=== PATIENT | male | born 1935 | race Asian ===

== ENCOUNTER 2018-12-24 20:51 | Emergency (ER) | payer OTHER ==
[~2018-12-24] VITALS: Ht 165.1 cm; Wt 71.7 kg
[2018-12-24 20:54] VITALS: Ht 165.1 cm; Wt 71.7 kg
[2018-12-24 22:28] LABS: BASOPHIL % 0.8 % (0-2); PLATELET COUNT 131 x10^3mcL (130-400); RED CELL DISTRIBUTION WIDTH 13.9 % (11.5-14.5)
[2018-12-24 22:36] LABS: CALCIUM 8.3 mg/dL (8.5-10.1); CARBON DIOXIDE 22.6 mmol/L (21-32); CHLORIDE SERUM 103 mmol/L (98-107); CREATININE SERUM 1.3 mg/dL (0.7-1.3); GLUCOSE SERUM 132 mg/dL (74-106); POTASSIUM SERUM 3.7 mmol/L (3.5-5.1); SODIUM SERUM 135 mmol/L (136-145)
[2018-12-24 22:40] LABS: ALBUMIN 3.8 g/dL (3.4-5.0); ALKALINE PHOSPHATASE 67 U/L (46-116); ALT/SGPT 33 U/L (16-63); AST/SGOT 20 U/L (15-37); BILIRUBIN TOTAL 0.5 mg/dL (0.20-1.00); TOTAL PROTEIN, SERUM 7.6 g/dL (6.4-8.2)
[2018-12-25 00:19] VITALS: BP 140/81
== END 2018-12-25 00:19 | disposition home or self-care (01) ==
LOC: ED 20:51
PROVIDERS: Emergency Medicine
DX: J44.9 Chronic obstructive pulmonary disease, unspecified (principal); I10 Essential (primary) hypertension; Z98.890 Other specified postprocedural states
CPT/HCPCS: 36415; 83880; Q0092